=== PATIENT | male | born 1995 | race Caucasian/White ===

== ENCOUNTER 2019-10-29 10:42 | Outpatient (CLI) | payer OTHER, SELFPAY ==
--- NOTE | ~2019-10-29 | US_ITS ---
EXAMINATION: US thyroid DATE: 10/29/2019 11:20 INDICATION: Enlarged thyroid. TECHNIQUE: Multiple ultrasound images of the thyroid were obtained. COMPARISON: None. FINDINGS: The right thyroid lobe measures 4.8 x 1.7 x 2.0 cm. The left thyroid lobe measures 4.4 x 1.6 x 1.8 c m. In the left thyroid lobe, there is a 5 mm solid, hypoechoic, [id number] nodule with ill-defi bry margin without echogenic foci (TI-RADS TR4). IMPRESSION: 1. Small thyroid nodule, likely not clinically significant. No follow-up is needed. Reviewed, dictated and finalized at location A. IMPRESSION: 1. Small thyroid nodule, likely not clinically significant. No follow-up is nee ded.
== END 2019-10-29 10:43 | disposition home or self-care (01) ==
PROVIDERS: Visit Provider Internal Medicine
DX: E04.1 Nontoxic single thyroid nodule (principal)
CPT/HCPCS: 76536

== ENCOUNTER 2020-03-19 09:58 | Outpatient (NON) | payer OTHER, SELFPAY ==
[2020-03-19 21:15] LABS: SARS-CoV-2 RNA PCR Negative
== END 2020-03-19 09:59 ==
PROVIDERS: Visit Provider Student in an Organized Health Care Education/Training Program
DX: R06.02 Shortness of breath (principal); M79.10 Myalgia, unspecified site; R53.83 Other fatigue; Z20.828 Contact with and (suspected) exposure to other viral communicable diseases
CPT/HCPCS: 87635; C9803; U0003

== ENCOUNTER 2020-10-30 20:17 | Emergency (ER) | payer OTHER, SELFPAY ==
[2020-10-30 20:33] VITALS: BP 123/82; PULSE 77; RESP 16; TEMP 36.4; O2SAT 98
--- NOTE | 2020-10-30 21:11 | ED.GENADULT ---
HPI - General Adult General Chief complaint: Unspecified Stated complaint: poss exposure to rabies from bats Time Seen by Provider: 10/30/20 21:01 History of Present Illness HPI narrative: Patient is a 25-year-old male who presents to the ER for evaluation of possible rabies exposure. Patient reports he went on to his back deck and there were 2 bats laying on the ground. He picked each went up by a wing and then placed him on his windowsill before then taking a plastic bag 1 hand and pushing the animals into a separate plastic bag. Does not believe he was bit. No scratches to his fingers. No other concerns. Related Data Home Medications Medication Instructions Recorded Confirmed cariprazine 1.5 mg capsule 1.5 mg PO DAILY 07/22/20 trazodone 50 mg tablet 50 mg PO QHS PRN 07/22/20 Allergies Allergy/AdvReac Type Severity Reaction Status Date / Time No Known Allergies Allergy Mild Verified 10/30/20 20:18 Review of Systems Constitutional: Constitutional: Denies chills and Denies fever(s) Integumentary/Breasts: Skin/Breast: Denies change in pigmentation, Denies lesions and Denies wounds PMFSH Past Medical History Medical History (Updated 10/30/20 @ 21:15 by He Fields MD) Allergies Anxiety Asthma Counseling on health promotion and disease prevention Former smoker GERD (gastroesophageal reflux disease) History of frequent headaches History of IBS Inflammatory arthritis SOB (shortness of breath) Family History Family History Mother Patient's mother is in good health Rheumatoid arthritis Lupus Father Patient's father is in good health Sibling Patient's brother is in good health Grandparent Cancer Heart disease Social History Social History Smoking status: Never smoker Alcohol intake: never Substance use: never Substance use type: does not use Exam Narrative: Exam Narrative: GENERAL: Well-appearing, well-nourished, and in no acute distress. HEAD: Normocephalic, atraumatic. CHEST: Clear to auscultation. No respiratory distress. HEART: Regular rate and rhythm. Normal peripheral pulses. EXTREMITIES: Normal range of motion. No edema. SKIN: Warm, dry, no rash. PSYCH: Normal mood and affect. Course Course Emergency Course: Sounds like patient had a nonexposure. We will not vaccinated against rabies. Discharge. Vital Signs Vital signs: Vital Signs Temperature 97.5 F L 10/30/20 20:33 Pulse Rate 77 10/30/20 20:33 Respiratory Rate 16 10/30/20 20:33 Blood Pressure 123/82 10/30/20 20:33 Pulse Oximetry 98 10/30/20 20:33 Temperature 97.5 F L 10/30/20 20:33 Pulse Rate 77 10/30/20 20:33 Respiratory Rate 16 10/30/20 20:33 Blood Pressure 123/82 10/30/20 20:33 Pulse Oximetry 98 10/30/20 20:33 Medical Decision Making Vital Signs Vital Signs: Vital Signs Temperature 97.5 F L 10/30/20 20:33 Pulse Rate 77 10/30/20 20:33 Respiratory Rate 16 10/30/20 20:33 Blood Pressure 123/82 10/30/20 20:33 Pulse Oximetry 98 10/30/20 20:33 Temperature 97.5 F L 10/30/20 20:33 Pulse Rate 77 10/30/20 20:33 Respiratory Rate 16 10/30/20 20:33 Blood Pressure 123/82 10/30/20 20:33 Pulse Oximetry 98 10/30/20 20:33 Discharge Plan Discharge Clinical Impression: Encounter for well adult exam without abnormal findings Patient Disposition: Home, Self-Care Condition: Stable Additional Instructions: Per your history there is no evidence for rabies exposure. Since you have the bats with you it would be recommended that you give them to animal control for further evaluation. Return the ER if you are having muscle cramps in your hand, you have new skin laceration not originally identified, or you have additional concerns. Prescriptions: No Action Vraylar 1.5 mg capsule 1.5 mg PO DAILY RF: 0 hydrox
== END 2020-10-30 22:26 | disposition home or self-care (01) ==
PROVIDERS: Emergency Provider Emergency Medicine; PCP Student in an Organized Health Care Education/Training Program
DX: Z03.89 Encounter for observation for other suspected diseases and conditions ruled out (principal); J45.909 Unspecified asthma, uncomplicated; K21.9 Gastro-esophageal reflux disease without esophagitis; K58.9 Irritable bowel syndrome, unspecified; M19.90 Unspecified osteoarthritis, unspecified site; F41.9 Anxiety disorder, unspecified; Z87.891 Personal history of nicotine dependence
CPT/HCPCS: 99281

== ENCOUNTER 2022-03-26 15:21 | Emergency (ER) | payer BC, SELFPAY ==
--- NOTE | ~2022-03-26 | XR_ITS ---
XR ankle RT min 3V DATE: 03/26/2022 15:46 INDICATION: Twisted ankle. Lateral ankle pain. TECHNIQUE: 4 views COMPARISON: None FINDINGS: There is mild lateral ankle soft tissue swelling. Small chronic bony ossicles near the inferior aspect of the lateral malleolus. No recent fracture or dislocation of the ankle or disruption of the ankle mortise is detected. IMPRESSION: Mild lateral soft tissue swelling; no recent fracture or dislocation Reviewed, dictated and finalized at location A. 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
[2022-03-26 15:40] VITALS: BP 134/82; PULSE 60; RESP 18; TEMP 36.3; O2SAT 100
--- NOTE | 2022-03-26 15:48 | ED.LOWEXIN ---
HPI - Extremity Injury (Lower) General Chief Complaint: Extremity Injury, Lower Stated Complaint: Right Ankle Pain Time Seen by Provider: 03/26/22 15:48 Source: patient Mode of arrival: ambulatory Limitations: no limitations History of Present Illness HPI Narrative: 27-year-old male presents with complaint pain to right ankle. Reports that he fell today and right ankle twisted underneath him. Injury happened 2-3 hours prior to arrival. Ambulatory with steady gait. Patient requesting x-ray, wants make sure he does not fracture. 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 Range of motion decreased due to pain, distal neurovascularly intact. All systems reviewed and negative except as noted above. Related Data Home Medications Medication Instructions Recorded Confirmed No Home Medications 03/26/22 03/26/22 Allergies Allergy/AdvReac Type Severity Reaction Status Date / Time No Known Allergies Allergy Mild Verified 03/26/22 15:38 Review of Systems Review of Systems: CONSTITUTIONAL: Denies fever, chills, or sweats. EYES: Denies visual changes, redness, or discharge. ENT: denies rhinorrhea, congestion, sore throat, or otalgia. CARDIOVASCULAR: Denies chest pain, palpitations, or edema. RESPIRATORY: Denies cough or dyspnea. GASTROINTESTINAL: Denies abdominal pain, nausea, vomiting, or diarrhea. GENITOURINARY: Denies dysuria or hematuria. SKIN: Denies rash or itching. MUSCULOSKELETAL: Denies back pain. Reports right ankle pain. NEUROLOGIC: Denies headache, numbness, or weakness. PSYCHIATRIC: Denies anxiety or depression. All other systems reviewed are negative, except as documented in HPI. [facility] Past Medical History Medical History (Updated 03/26/22 @ 16:20 by Leigh Mccoy NP) Allergies Anxiety Asthma Counseling on health promotion and disease prevention Former smoker GERD (gastroesophageal reflux disease) History of frequent headaches History of IBS Inflammatory arthritis SOB (shortness of breath) Family History Family History Mother Patient's mother is in good health Rheumatoid arthritis Lupus Father Patient's father is in good health Sibling Patient's brother is in good health Grandparent Cancer Heart disease Social History Social History Smoking status: Never smoker Alcohol intake: never Substance use: never Substance use type: does not use Comments At time of signature, agree with nursing past medical, surgical, social and family history. There is no relevant family history pertinent to the presenting complaint. Exam Narrative: GENERAL: This is a well-nourished, well-developed patient, in no apparent distress. HEAD: normocephalic, atraumatic. EYES: PERRL. Sclera clear/white. Vision is grossly intact. EARS: External ears normal NOSE: External nose normal NECK: Neck supple, non-tender without lymphadenopathy, masses or thyromegaly. CARDIOVASCULAR: Regular rate and rhythm without murmurs, gallops, or rubs. RESPIRATORY: Clear to auscultation. Breath sounds equal bilaterally. No wheezes, rales, or rhonchi. SKIN: warm, Dry, intact with no suspicious lesions or rash, good texture and turgor. NEURO: awake, alert, and oriented to person, place and time. There were no obvious focal neurologic abnormalities. EXTREMITIES: Mild swelling to the lateral aspect right ankle, tenderness to right CFL. No instability. Range of motion decreased due to pain. Distal pulses 2+ Course Course Level of Care: Express Care Visit Vital Signs Vital signs: Vital Signs Temperature 36.3 C L 03/26/22 15:40 Pulse Rate 60 03/26/22 15:40 Respiratory Rate 18 03/26/22 15:40 Blood Pressure 134/82 03/26/22 15:40 Pulse Oximetry 100 03/26/22 15:40 Oxygen Delivery Room Air 03/26/22 15:40 Temperature 36.3 C L 03/26/22 15:40 Pulse Ra
== END 2022-03-26 16:28 | disposition home or self-care (01) ==
PROVIDERS: Emergency Provider Nurse Practitioner Family; PCP Nurse Practitioner Adult Health
DX: S93.401A Sprain of unspecified ligament of right ankle, initial encounter (principal); W19.XXXA Unspecified fall, initial encounter; K21.9 Gastro-esophageal reflux disease without esophagitis; J45.909 Unspecified asthma, uncomplicated; M13.80 Other specified arthritis, unspecified site
CPT/HCPCS: 73610; 99213; G0463

== ENCOUNTER 2022-05-02 18:21 | Emergency (ER) | payer BC, SELFPAY ==
[2022-05-02 18:36] VITALS: BP 129/78; PULSE 65; RESP 16; TEMP 36.4; O2SAT 97
--- NOTE | 2022-05-02 19:18 | ED.SKABFB ---
HPI - Skin/Abscess/Foreign Bdy General Chief complaint: Skin/Abscess/Foreign Body Stated complaint: Swollen Armpits Source: patient Mode of arrival: ambulatory Limitations: no limitations History of Present Illness HPI narrative: 27-year-old male presents to Express Care complains of swelling to lymph nodes to his bilateral axilla regions since last night. Patient denies unexplained weight loss, night sweats, fever, body aches, chills, nausea, vomiting or diarrhea. Onset (ago): day(s) (1) Relieving factors: none Exacerbating factors: none Associated symptoms: denies other symptoms Treatments prior to arrival: none Related Data Allergies Allergy/AdvReac Type Severity Reaction Status Date / Time No Known Allergies Allergy Mild Verified 03/26/22 15:38 Review of Systems Constitutional: Constitutional: Denies chills, Denies fatigue, Denies fever(s) and Denies weakness ENT: Denies vertigo, Denies dizziness and Denies epistaxis Comments: Enlarged lymph nodes to bilateral axilla regions Gastrointestinal: Gastrointestinal: Denies diarrhea, Denies nausea and Denies vomiting Musculoskeletal: Musculoskeletal: Denies arthralgias and Denies joint swelling Integumentary/Breasts: Comments: lymphadenopathy PMFSH Past Medical History Medical History Allergies Anxiety Asthma Counseling on health promotion and disease prevention Former smoker GERD (gastroesophageal reflux disease) History of frequent headaches History of IBS Inflammatory arthritis SOB (shortness of breath) Family History Family History Mother Patient's mother is in good health Rheumatoid arthritis Lupus Father Patient's father is in good health Sibling Patient's brother is in good health Grandparent Cancer Heart disease Social History Social History Smoking status: Never smoker Alcohol intake: never Substance use: never Substance use type: does not use Comments At time of signature, I agree with nursing past medical, surgical, social and family history. There is no relevant family history pertinent to the presenting complaint. Exam Const: General: healthy appearing Nutritional Appearance: well nourished Orientation/consciousness: patient oriented x3 Limitations: no limitations HENMT: Head: normal to inspection Ears: external ears normal and TM's normal bilaterally Face/Nose/Sinus: Normal external nose present Face and sinus: normal facial exam Throat: posterior oropharynx normal and uvula midline Neck: Neck: normal visual inspection Resp: Effort & Inspection: normal respiratory effort and not labored Auscultation: clear to auscultation bilaterally, no crackles, no rales, no rhonchi and no wheezes Cardio: Rate: regular rate Rhythm: regular rhythm Heart sounds: no murmurs Skin: Other: Mild lymphadenopathy noted to bilateral axillary region with scant amount of surrounding erythema noted. Areas are slightly painful upon palpation. There is no streaking erythema, open wounds, purulent drainage, bruising or bleeding noted. Neuro: General: patient oriented x3 Psych: Affect: normal affect Attitude: cooperative Course Course Level of Care: Express Care Visit Vital Signs Vital signs: Vital Signs Temperature 36.4 C 05/02/22 18:36 Pulse Rate 65 05/02/22 18:36 Respiratory Rate 16 05/02/22 18:36 Blood Pressure 129/78 05/02/22 18:36 Pulse Oximetry 97 05/02/22 18:36 Oxygen Delivery Room Air 05/02/22 18:36 Temperature 36.4 C 05/02/22 18:36 Pulse Rate 65 05/02/22 18:36 Respiratory Rate 16 05/02/22 18:36 Blood Pressure 129/78 05/02/22 18:36 Pulse Oximetry 97 05/02/22 18:36 Oxygen Delivery Room Air 05/02/22 18:36 MDM - Skin/Abscess/Foreign Bdy MDM Narrative Medical decision making narrative: Patient rep
== END 2022-05-02 19:30 | disposition home or self-care (01) ==
PROVIDERS: Emergency Provider Nurse Practitioner Family; PCP Nurse Practitioner Adult Health
DX: R59.0 Localized enlarged lymph nodes (principal); J45.909 Unspecified asthma, uncomplicated; K21.9 Gastro-esophageal reflux disease without esophagitis; M13.80 Other specified arthritis, unspecified site; Z87.891 Personal history of nicotine dependence
CPT/HCPCS: 99213; G0463

== ENCOUNTER 2023-01-14 11:04 | Emergency (ER) | payer BC, SELFPAY ==
[2023-01-14 11:26] VITALS: BP 137/86; PULSE 63; RESP 16; TEMP 36.4; O2SAT 100
--- NOTE | 2023-01-14 11:50 | ED.URI ---
HPI - URI/Sore Throat General Chief Complaint: Upper Respiratory Infection Stated Complaint: Bodyaches Time Seen by Provider: 01/14/23 11:50 Source: patient, RN notes reviewed and old records reviewed Mode of arrival: ambulatory Limitations: no limitations History of Present Illness HPI Narrative: 28 year old male who presents to [facility] care with complaints of having body aches, stuffy nose, arms feel weak and it hurts in his chest when he breath for the past 4 days. Patient reports no one else around him is ill. Patient reports that he has dull ache in his chest with his breathing reports that he quit vaping 3 days ago. Patient denies any nausea or any episodes of diaphoresis denies any fevers, states history of asthma.Patient is able to speak in full sentences, no tachypnea noted or any retractions SAO2 100% on room air. Patient has not taken any OTC medications for his symptoms. MD elicited complaint: nasal congestion and other (body aches,hurts in chest when he breaths, arms feel weak no fever) Pertinent past history: asthma Onset (ago): day(s) (4) Severity: mild Treatments prior to arrival: none Related Data Allergies Allergy/AdvReac Type Severity Reaction Status Date / Time No Known Allergies Allergy Mild Verified 01/14/23 11:06 Review of Systems Review of Systems: CONSTITUTIONAL: Denies fever, chills, or sweats. EYES: Denies visual changes, redness, or discharge. ENT: Denies rhinorrhea,states nasal congestion,no sore throat, or otalgia. CARDIOVASCULAR: Denies chest pain, palpitations, or edema.reports that chest aches with his breathing RESPIRATORY: Denies cough or dyspnea. GASTROINTESTINAL: Denies abdominal pain, nausea, vomiting, or diarrhea. GENITOURINARY: Denies dysuria or hematuria. SKIN: Denies rash or itching. MUSCULOSKELETAL: Denies back pain, joint pain, reports body aches NEUROLOGIC: Denies headache, numbness, or weakness PSYCHIATRIC: Denies anxiety or depression. All systems reviewed & are unremarkable except as noted in HPI and below PMFSH Past Medical History Medical History Allergies Anxiety Asthma Counseling on health promotion and disease prevention Former smoker GERD (gastroesophageal reflux disease) History of frequent headaches History of IBS Inflammatory arthritis SOB (shortness of breath) Family History Family History Mother Patient's mother is in good health Rheumatoid arthritis Lupus Father Patient's father is in good health Sibling Patient's brother is in good health Grandparent Cancer Heart disease Social History Social History (Updated 01/16/23 @ 09:07 by Leeann Cisneros NP) Smoking status: Former smoker Tobacco type: cigarettes and e-cigarettes/vaping Alcohol intake: former Substance use: never Substance use type: does not use 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 There is no relevant family history pertinent to the presenting complaint Exam Narrative: GENERAL: Well-appearing, well-nourished, and in no acute distress. HEAD: Normocephalic, atraumatic. EYES: PERRLA and EOMI. ENT: Nares clear, clear rhinorrhea no epistaxis. Mucous membranes moist.TM's normal with good light reflex, throat pink with no swelling NECK: Supple. no lymphadenopathy CHEST: Clear to auscultation. No respiratory distress.speaks in full sentences, no tachypnea SAO2 100% on room air HEART: Regular rate and rhythm. No murmur heard. Normal peripheral pulses. ABDOMEN: Soft, nontender, nondistended, normal active bowel sounds. EXTREMITIES: Normal range of motion. No edema. SKIN: Warm, dry, no rash. NEURO: No focal deficits. Alert and oriented x3. Course Course Emergency Course: Patient is aware of d
== END 2023-01-14 12:39 | disposition home or self-care (01) ==
PROVIDERS: Emergency Provider Registered Nurse
DX: M94.0 Chondrocostal junction syndrome [Tietze] (principal); Z20.822 Contact with and (suspected) exposure to COVID-19; Z87.891 Personal history of nicotine dependence; J45.909 Unspecified asthma, uncomplicated; K21.9 Gastro-esophageal reflux disease without esophagitis; M13.80 Other specified arthritis, unspecified site
CPT/HCPCS: 87426; 87804; 99213; C9803; G0463

== ENCOUNTER 2023-05-11 12:49 | Emergency (ER) | payer BC, SELFPAY ==
[2023-05-11 13:04] VITALS: BP 124/82; PULSE 74; RESP 17; TEMP 36.6; O2SAT 100
--- NOTE | 2023-05-11 13:33 | ED.SKABFB ---
HPI - Skin/Abscess/Foreign Bdy General Chief complaint: Skin/Abscess/Foreign Body Stated complaint: Rash Time Seen by Provider: 05/11/23 13:20 Source: patient Mode of arrival: ambulatory Limitations: no limitations History of Present Illness HPI narrative: Estevan is a 28-year-old male patient presenting to the clinic today with complaints of a rash on his feet and hands that just developed this morning. Reports that the rash is very itchy. He has applied some Benadryl cream without relief. Reports no sore throat but has been passing strep back in forth with his son home. Just finished up antibiotics recently for strep. Denies any new changes in soaps, shampoos, detergents, lotions, foods, or medications. No history of psoriasis. Related Data Allergies Allergy/AdvReac Type Severity Reaction Status Date / Time No Known Allergies Allergy Mild Verified 01/14/23 11:06 Review of Systems Review of Systems: Pertinent positives per HPI. Patient denies any fever, chills,headache, visual changes, dizziness, cough, runny nose, sore throat, shortness of breath, chest pain, palpitations, nausea, vomiting, diarrhea, constipation, abdominal pain, or any urinary issues. [facility] Past Medical History Medical History Allergies Anxiety Asthma Counseling on health promotion and disease prevention Former smoker GERD (gastroesophageal reflux disease) History of frequent headaches History of IBS Inflammatory arthritis SOB (shortness of breath) Family History Family History Mother Patient's mother is in good health Rheumatoid arthritis Lupus Father Patient's father is in good health Sibling Patient's brother is in good health Grandparent Cancer Heart disease Social History Social History Smoking status: Former smoker Tobacco type: cigarettes and e-cigarettes/vaping Alcohol intake: former Substance use: never Substance use type: does not use 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 There is no relevant family history pertinent to the patient complaint. Exam Narrative: General: Well-developed, well nourished, in no apparent distress Head: Normocephalic, atraumatic Eyes: Pupils equally round and reactive to light bilaterally, EOM intact, sclera and conjunctive clear, no discharge, lids normal Ears: TMs intact and clear, ear canals clear, no drainage, grossly hearing normal. Nose: Nares patent, no discharge, no inflammation, no sinus tenderness. Mouth: Oropharynx mildly red without lesions or masses, good dentition, MMM. Neck: Supple, trachea midline, no enlargement of anterior or posterior cervical nodes, no thyroid masses or goiter palpable. Cardio: Regular rate and rhythm, s1 and s2 normal, no murmur appreciated. Resp: Clear to auscultation bilaterally anteriorly and posteriorly, no rhonchi, rales, wheezing or rubs Integumentary: [place], warm, and dry, intact without lesion, red raised scaly rash to bilateral palms and to the dorsal aspect of bilateral feet Course Course Emergency Course: Portions of this record may have been created with voice recognition software. Level of Care: Express Care Visit Vital Signs Vital signs: Vital Signs Temperature 36.6 C 05/11/23 13:04 Pulse Rate 74 05/11/23 13:04 Respiratory Rate 17 05/11/23 13:04 Blood Pressure 124/82 05/11/23 13:04 Pulse Oximetry 100 05/11/23 13:04 Oxygen Delivery Room Air 05/11/23 13:04 Temperature 36.6 C 05/11/23 13:04 Pulse Rate 74 05/11/23 13:04 Respiratory Rate 17 05/11/23 13:04 Blood Pressure 124/82 05/11/23 13:04 Pulse Oximetry 10
== END 2023-05-11 13:41 | disposition home or self-care (01) ==
PROVIDERS: Emergency Provider Nurse Practitioner Family
DX: L30.9 Dermatitis, unspecified (principal); Z87.891 Personal history of nicotine dependence
CPT/HCPCS: 87081; 87880; 99213; G0463

== ENCOUNTER 2023-10-31 08:22 | Emergency (ER) | payer BC, SELFPAY ==
--- NOTE | ~2023-10-31 | XR_ITS ---
EXAMINATION: XR chest 2V DATE: 10/31/2023 09:10 INDICATION: Chest pain. Shortness of breath. TECHNIQUE: Frontal and lateral views of the chest were obtained. COMPARISON: Chest 2 views 10/08/2013 FINDINGS: There is no pneumonia, pleural effusion, or pneumothorax. The heart size is normal. IMPRESSION: 1. No acute cardiopulmonary disease. Reviewed, dictated and finalized at location E.
--- NOTE | 2023-10-31 08:25 | ECG_ITS ---
Test Date: 2023-10-31 08:28:37 Measurements Intervals [place] Rate: 50 P: 16 NM: 169 QRS: 0 QRSD: 101 T: 15 QT: 397 QTc: 365 Interpretive Statements SINUS BRADYCARDIA No previous ECG available for comparison Electronically Signed On 10-31-2023 12:11:03 CDT by Bushra Hobbs M.D.
[2023-10-31 08:27] VITALS: BP 137/82; PULSE 53; RESP 22; TEMP 36.4; O2SAT 100
[2023-10-31 08:49] LABS: Hematocrit 48.4 % (42.0-52.0); Mean Corpuscular HGB Conc 35.1 g/dl (32-36); Mean Corpuscular Hemoglobin 29.3 pg (26-34); Mean Corpuscular Volume 83.4 fl (80-100); Mean Platelet Volume 10.1 fl (7.4-10.4); Platelet Count Result 238 k/mm3 (150-375); Red Cell Distribution Width 12.6 % (11.5-14.5); White Blood Count 6.1 K/mm3 (4.5-10.0)
[2023-10-31 09:01] LABS: Alanine Aminotransferase 41 U/L (6-50); Albumin Level 4.8 g/dL (3.5-5.1); Alkaline Phosphatase 47 U/L (38-126); Anion Gap 9 mmol/L (4-12); Aspartate Amino Transferase 25 U/L (17-59); Bilirubin,Total 1.3 mg/dL (0.2-1.3); Blood Urea Nitrogen 15 mg/dL (9-20); Calcium 9.1 mg/dL (8.4-10.2); Carbon Dioxide 26 mmol/L (22-30); Chloride 106 mmol/L (98-107); Estimated CRCL calculation 102 ml/min; Estimated Glomerular Filt Rate > 60; Glucose 87 mg/dL (65-110); Lipase 72 U/L (23-300); Sodium 141 mmol/L (137-145)
[2023-10-31 09:03] LABS: INR 0.9; Prothrombin Time 12.9 Seconds (11.1-14.7)
[2023-10-31 09:04] LABS: Partial Thromboplastin Time 27.1 Seconds (22.3-36.8)
[2023-10-31 09:12] LABS: Troponin I < 0.012 ng/mL (0.000-0.034)
[2023-10-31 09:14] LABS: Band Neutrophils Percent 2 % (0-6); Monocytes Percent Manual 5 % (3-9); Neutrophils Percent Manual 61 % (46-73); Platelet Estimate Adequate (Adequate); Schistocytes None Seen; Total Cells Counted 100
[2023-10-31 09:15] LABS: Platelet Estimate Adequate (Adequate); Schistocytes None Seen
[2023-10-31 09:16] VITALS: BP 137/72; PULSE 66; RESP 16; O2SAT 100
--- NOTE | 2023-10-31 09:46 | ED.CHESTPAIN ---
HPI - Chest Pain General Chief Complaint: Chest Pain Stated Complaint: sob, cp Time Seen by Provider: 10/31/23 08:28 History of Present Illness HPI narrative: 28-year-old male presents to the emergency department for evaluation for intermittent right-sided chest pain. Patient states over last 2 days he has had intermittent right-sided chest pain. Patient states the chest pain does not radiate to his neck back or arms. Patient states the chest pain does not occur specifically with exertion. Patient denies any prior history DVT but does have a history of superficial venous thrombosis on his right leg approximately year ago. Patient denies any cardiac history. At time of evaluation patient denies any current chest pain. Related Data Allergies Allergy/AdvReac Type Severity Reaction Status Date / Time amoxicillin Allergy Intermediate Rash Uncoded 08/08/23 15:51 Review of Systems Review of Systems: All systems reviewed & are unremarkable except as noted in HPI and below PMFSH Past Medical History Medical History (Updated 10/31/23 @ 11:52 by Luis Walker MD) Allergies Anxiety Asthma Counseling on health promotion and disease prevention Former smoker GERD (gastroesophageal reflux disease) History of frequent headaches History of IBS Inflammatory arthritis SOB (shortness of breath) Family History Family History Mother Patient's mother is in good health Rheumatoid arthritis Lupus Father Patient's father is in good health Sibling Patient's brother is in good health Grandparent Cancer Heart disease Social History Social History (Updated 08/08/23 @ 15:17 by Veronica Reyes MA) Smoking status: Former smoker Tobacco type: cigarettes and e-cigarettes/vaping Alcohol intake: current Alcohol use details: Time to Time (Tequila) Substance use: never Substance use type: does not use Lack of Transportation: No Lack of Food: Never True Current Housing: I Have Housing Concerned About Future Housing: No Difficulty Paying Gas/Electric Bills: No Difficulty Paying for Meds: No Currently Unemployed: No Education: High School Diploma/GED Difficulty w/ Childcare or Family Care: No Occupation/Education: occupation Additional occupation/education comments: @ [employer] Gender identity (if verbalized by the patient): Male Agree to blood products: Yes Exam Narrative: APPEARANCE: Well appearing, no pain, no distress, well-nourished. HEAD: normocephalic, atraumatic. EYES: PERRLA/EOMI, conjunctivae clear. NOSE: Normal no drainage EARS:TMS clear with good light reflex. THROAT: Pharynx clear, no exudate. NECK: Supple. No adenopathy, no masses. RESPIRATORY: Airway patent, respirations nonlabored. Clear to auscultation bilaterally, no rales, rhonchi, wheezing. CARDIOVASCULAR: Regular rate and rhythm without murmurs rubs or gallops. ABDOMINAL: Soft, nontender, nondistended, normal bowel sounds MUSCULOSKELETAL: Moves all extremities. Strength/ROM intact, No edema, No calf tenderness. NEURO: Alert. Cranial nerves II through XII intact. Grossly intact SKIN: Warm, dry. Normal Color Course Vital Signs Vital signs: Vital Signs Temperature 97.6 F 10/31/23 08:27 Pulse Rate 53 L 10/31/23 08:27 Respiratory Rate 22 H 10/31/23 08:27 Blood Pressure 137/82 10/31/23 08:27 Pulse Oximetry 100 10/31/23 08:27 Oxygen Delivery Room Air 10/31/23 08:27 Temperature 98.2 F 10/31/23 11:58 Pulse Rate 72 10/31/23 11:58 Respiratory Rate 16 10/31/23 11:58 Blood Pressure 122/76 10/31/23 11:58 Pulse Oximetry 100 10/31/23 11:58 Oxygen Delivery Room Air 10/31/23 08:35 MDM - Chest Pain MDM Narrative Medical decision making narrative: 28-year-old male presents emergency department for evaluation for right-sided chest pain. Patient has been chest pain-free in the emergency department. Pat
[2023-10-31 09:52] LABS: D Dimer 0.37 ug/mL (<0.48)
[2023-10-31 10:32] LABS: Influenza A QL RT-PCR Negative (Negative); Influenza B QL RT-PCR Negative (Negative); RSV RNA, RT-PCR Negative (Negative); SARS-CoV-2 RNA PCR Negative (Negative)
[2023-10-31 11:08] VITALS: BP 143/73; PULSE 76; RESP 16; O2SAT 100
--- NOTE | 2023-10-31 11:15 | ECG_ITS ---
Test Date: 2023-10-31 11:24:44 Measurements Intervals Boutte Rate: 52 P: 4 ID: [id number] QRS: 12 QRSD: 103 T: 20 QT: 392 QTc: 366 Interpretive Statements SINUS BRADYCARDIA WITH SINUS ARRHYTHMIA Compared to ECG 10/31/2023 08:28:37 No significant changes Electronically Signed On 11-01-2023 14:23:03 CDT by Bushra Hobbs M.D.
[2023-10-31 11:45] LABS: Troponin I < 0.012 ng/mL (0.000-0.034)
[2023-10-31 11:58] VITALS: BP 122/76; PULSE 72; RESP 16; TEMP 36.8; O2SAT 100
== END 2023-10-31 12:00 | disposition home or self-care (01) ==
PROVIDERS: Emergency Provider Emergency Medicine; PCP Nurse Practitioner Adult Health
DX: R07.89 Other chest pain (principal); Z20.822 Contact with and (suspected) exposure to COVID-19; K21.9 Gastro-esophageal reflux disease without esophagitis; K58.9 Irritable bowel syndrome, unspecified; Z87.891 Personal history of nicotine dependence; R00.1 Bradycardia, unspecified
CPT/HCPCS: 36415; 71046; 80053; 83690; 84484; 85025; 85380; 85610; 85730; 87637; 93005; 99284

== ENCOUNTER 2023-11-28 15:04 | Outpatient (CLI) | payer BC, SELFPAY ==
--- NOTE | ~2023-11-28 | US_ITS ---
EXAMINATION: US thyroid DATE: 11/28/2023 15:25 INDICATION: Nontoxic single thyroid nodule TECHNIQUE: Multiple ultrasound images of the thyroid were obtained. COMPARISON: None. FINDINGS: The right thyroid lobe measures 4.2 x 1.5 x 1.7 cm. The left thyroid lobe measures 2.9 x 1.2 x 2.0 c m. The thyroid isthmus measures 3 mm thickness. No interval change in a 4 mm solid wider than tall hy poechoic nodule with ill-defined margins and without echogenic foci (TI-RADS 4, moderately suspicious , FNA if >=1.5 cm, annual followup is >=1 cm) in the left thyroid lobe. There is normal echotexture, echogenicity and vascular flow throughout the thyroid gland. IMPRESSION: 1. No interval change in a 4 mm left thyroid nodule which remains below size criteria for either biop sy or follow-up. Recommend clinical followup with repeat imaging if there are changes on physical exa m. Reviewed, dictated and finalized at location A. IMPRESSION: 1. No interval change in a 4 mm left thyroid nodule which remains below size cr iteria for either biopsy or follow-up. Recommend clinical followup with repeat imaging if there are changes on physical exam.
== END 2023-11-28 15:05 | disposition home or self-care (01) ==
LOC: ANHIMG 15:06
PROVIDERS: PCP Nurse Practitioner Adult Health; Visit Provider Nurse Practitioner Adult Health
DX: E04.1 Nontoxic single thyroid nodule (principal)
CPT/HCPCS: 36415; 76536; 84439; 84443

== ENCOUNTER 2024-08-21 08:59 | Outpatient (CLI) | payer BC, SELFPAY ==
--- OUTSIDE RECORDS SUMMARY | 2024-08-21 09:45 | XMS_ITS | Encounter Summary ---
Author Organization [facility] Address [facility] [place] [address] Care Team Providers Care Nonprofit Fundraiser Name Role Phone Aguilar Harshad Vail DO Primary Care Provider + Mare Johnson [facility] Primary Care Provider Unav ailable David Weir MD Primary Care Provider Un available None, Provider Primary Care Provider Unavaila ble Encounter Details Date Type Department Care Team (Late st Contact Info) Description 07/31/2019 Scannx Message Enc [facility] Medical Group Family Medicine - [address] [address] Mau Mares DO [address] [phone] RE: Question Social History Tobacco Use Types Packs/Day Years Used Date Smoking Tobacco: Some Days Smokeless Tobacco: Never Alcohol Use Standard Drinks/Week Comments Never 0 (1 standard drink = 0.6 oz pur e alcohol) AUDIT-C Answer Date Recorded Frequency of Alcohol Consumption Never 07/07/2019 Average Number of Drinks Not on file 020 Frequency of Binge Drinking Not on file 06/16 Sex and Gender Information Value Date Recorded Sex Assigned at Not on file 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 Sex 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 Gender Identity Not on file Sexual Orientation Not on file documented as of this encounter Plan of Treatment Not on file documented as of this encounter Visit Diagnoses Not on filedocumented in this encounter Additional Health Concerns Infection Onset Date Last Indicated Resolved Time COVID-19 Rule Out 12/10/2019 12/10/2019 02/08/2020 12:32 AM CDT COVID-19 Rule Out 03/18/2020 03/19/2020 03/30/2020 11:54 AM PRECIPITATOR OPERATOR documented as of this encounter Care Teams Nonprofit Fundraiser Relationship Specialty Start Date End Date Harshad Sheikh DO [address] [place] [id number] PCP - General FAMILY PRACTICE 11/27/19 05/01/22 [facility] [address] [place] [id number] PCP - General NURSE PRACTITIONER 05/02/22 05/13/22 David Weir MD [address] [place] [id number] PCP - General FAMILY PRACTICE 05/14/22 12/05/22 None, Provider, PCP - General UNKNOWN PHYSICIAN SPECIALTY 12/06/22 documented as of this encounter
--- OUTSIDE RECORDS SUMMARY | 2024-08-21 09:45 | XMS_ITS | Encounter Summary ---
Author Organization [facility] Address [facility] [place] [address] Care Team Providers Care Outpatient Admitting Clerk Name Role Phone Mau Mares DO Primary Care Provider [phone] Harshad Sheikh DO Primary Care Provider + Mare Johnson [facility] Primary Care Provider Unav ailable David Weir MD Primary Care Provider Un available None, Provider Primary Care Provider Unavaila ble Encounter Details Date Type Department Care Team (Late st Contact Info) Description 09/13/2018 [place] Mediat Message Enc [facility] Medical Group Family Medicine - [place] [address] [place] [address] Mau Mares DO [address] [place] [phone] RE: Question Social History Tobacco Use Types Packs/Day Years Used Date Smoking Tobacco: Some Days Smokeless Tobacco: Never Sex and Gender Information Value Date Recorded Sex Assigned at Not on file 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 Gender Identity Not on file Sexual Orientation Not on file documented as of this encounter Plan of Treatment Not on file documented as of this encounter Visit Diagnoses Not on filedocumented in this encounter Additional Health Concerns Infection Onset Date Last Indicated Resolved Time COVID-19 Rule Out 12/10/2019 12/10/2019 02/08/2020 12:32 AM CDT COVID-19 Rule Out 03/18/2020 03/19/2020 03/30/2020 11:54 AM FIRE AND SAFETY HELPER documented as of this encounter Care Teams Outpatient Admitting Clerk Relationship Specialty Start Date End Date Mau Mares DO PCP - General FAMILY PRACTICE 07/19/18 07/06/19 Harshad Sheikh DO [address] [place] [id number] PCP - General FAMILY PRACTICE 11/27/19 05/01/22 [facility] [address] [place] [phone] PCP - General NURSE PRACTITIONER 05/02/22 05/13/22 David Weir MD [address] [place] [address] PCP - General FAMILY PRACTICE 05/14/22 12/05/22 None, Provider, PCP - General UNKNOWN PHYSICIAN SPECIALTY 12/06/22 documented as of this encounter
--- OUTSIDE RECORDS SUMMARY | 2024-08-21 09:45 | XMS_ITS | Clinical Summary ---
Author Organization [facility] Address [facility] [place] [address] Care Team Providers Care Machinist Automotive Name Role Phone None, Provider MD Primary Care Provider Unavaila ble Allergies No known active allergies Medications omeprazole 20 MG capsule Take 1 capsule by mouth daily. 0 Active PROAIR HFA 108 (90 Base) MCG/ACT inhalerIndicati ons:History of reactive airway disease Inhale 2 puffs into the lungs every 6 (six) hours as needed. 1 Inhaler 2 0 Active valACYclovir 500 MG tabletIndicatio ns:History of cold sores Take 1 tablet (500 mg total) by mouth daily. Appointment with new provider needed for future refills. Call [phone] to schedule. 90 tablet 1 Active clindamycin (CLEOCIN T) 1 % gel Apply topically 2 (two) times daily. As needed for red spots 60 g 2 Active LORazepam (ATIVAN) 0.5 MG tabletIndicatio ns:BPPV (benign paroxysmal positional vertigo) Take 2 tablets (1 mg total) by mouth every 6 (six) hours as needed (vertigo). 12 tablet 3 Active Active Problems Problem Noted Date Diagnosed Date Genital herpes simplex 05/11/2022 Anxiety state 05/11/2022 Mixed anxiety and depressive disorder 07/07/2021 Mild memory disturbance 07/07/2021 History of methamphetamine abuse 07/07/2021 Encounter for medication management 02/01/2021 Former smoker 02/01/2021 Inflammatory arthritis 02/01/2021 SOB (shortness of breath) 02/01/2021 Laryngopharyngeal reflux 11/27/2019 Polyarthralgia 11/27/2019 BMI 28.0-28.9,adult 11/27/2019 Left shoulder pain 10/21/2015 Shoulder injury 10/21/2015 Resolved Problems Problem Noted Date Diagnosed Date Resolved Date Counseling on health promoti on and disease prevention 02/01/2021 02/08/2021 Encounter for well adult horacio m without abnormal findings 02/01/2021 02/08/2021 Immunizations Name Administration Dates Next Due Hepatitis A (Generic) 08/28/2012 Tdap (Boostrix) 12/14/2016 Family History Medical History Relation Comments No Known Problems Brother No Known Problems Father Heart Attack Maternal Grandfather Stroke Maternal Grandfather Leukemia Maternal Grandmother Autoimmune Disease Mother Lupus Mother Rheumatoid Arthritis Mother No Known Problems Paternal Grandfather No Known Problems Paternal Grandmother No Known Problems Sister Breast Cancer Neg Hx Colon Cancer Neg Hx Prostate Cancer Neg Hx Relation Status Comments Brother Alive Father Alive Maternal Grandfather Alive Maternal Grandmother Alive Mother Alive Paternal Grandfather Alive Paternal Grandmother Alive Sister Alive Social History Tobacco Use Types Packs/Day Years Used Date Smoking Tobacco: Former Cigarettes Q uit: 10/28/2019 Electronic Cigarettes Smokeless Tobacco: Never Tobacco Cessation:Counseling Given: Not Answered Comments:6 mg nicotine Alcohol Use Standard Drinks/Week Comments Not Currently 0 (1 standard drink = 0.6 oz pur e alcohol) socially AUDIT-C Answer Date Recorded Frequency of Alcohol Consumption Never 07/07/2019 Average Number of Drinks Not on file 020 Frequency of Binge Drinking Not on file 06/16 PHQ-2 Answer Date Recorded PHQ-2 Score - If the patient scores above 3, please move on to questions 3-9 5 07/15/2020 Sex and Gender Information Value Date Recorded Sex Assigned at Not on file Legal Sex Male 3:11 PM YARD DRIVER Gender Identity Not on file Sexual Orientation Not on file Last Filed Vital Signs Vital Sign Reading Time Taken Comments Blood Pressure 128/82 07/19/2023 1:46 PM YARD DRIVER Pulse 70 07/19/2023 1:46 PM YARD DRIVER Temperature 36.8 C (98.3 F) 07/19/2023 10:39 AM YARD DRIVER Respiratory Rate 18 07/19/2023 1:46 PM YARD DRIVER Oxygen Saturation 96% 07/19/2023 1:46 PM YARD DRIVER Inhaled Oxygen Concentration - - Weight 93 kg (205 lb) 07/19/2023 10:39 AM YARD DRIVER Height 180.3 cm (5' 11 ) 07/19/2023 10:39 AM YARD DRIVER Body Mass Index 28.59 07/19/2023 10:39 AM YARD DRIVER Plan of Treatment Health Maintenance Due Date Last Done Comments Annual Physical 01/04/1996 Hepatitis C 2011 Hepatitis B Vaccines (1 of 3 - 19+ 3-dose series) 01/04/2012 COVID-19 Vaccine (2023-2 5 season) 2024 PHQ-2 (Physician Cofield) 05/15/2024 DTaP, Tdap and Td Vaccines ( 3 - Td or Tdap) 04/21/2031 04/21/2021, 12/14/2016, 12/14/2016 HPV Vaccines Aged Out No longer eligi ble based on patient's age to complete this topic Meningococcal B Vaccine Aged Out No l onger eligible based on patient's age to complete this topic Meningococcal Vaccine Aged Out No cheryl shahab eligible based on patient's age to complete this topic Pneumococcal Vaccine: Pediatrics (0 to 5 Years) and At-Risk Patients (6 to 64 Years) Aged Out No longer eligible b ased on patient's age to complete this topic RSV Immunizations Under 20 Months Aged Out No longer eligible b ased on patient's age to complete this [place] [id number] [facility] Care Teams Machinist Automotive Relationship Specialty Start Date End Date None, Provider, PCP - General UNKNOWN PHYSICIAN SPECIALTY 12/06/22
--- OUTSIDE RECORDS SUMMARY | 2024-08-21 09:45 | XMS_ITS | Continuity of Care Document ---
Author Organization [facility] Address [address] [place] [address] Phone Care Team Providers Care Linen Sorter Name Role Phone Nathan Pal MD Unavailable Unavailable Allergies, Adverse Reactions, Alerts Substance Reaction Status Criticality amoxicillin Hives / Skin Rash Active No Informa tion Medications Medication Instructions Dosage Effective Dates (start - stop) Status Comments omeprazole 40 mg capsule,delayed release take 1 capsule by oral route every day 40 MG - Active famotidine 40 mg tablet take 1 tablet by oral route every day at bedtime 40 MG - Active Procedures Procedure Date COLONOSCOPY AND BIOPSY TISSUE EXAM BY PATHOLOGIST BODY MASS INDEX DOCD SYST BP GE 130 - 139MM HG DIAST BP 80-89 MM HG OFFICE [id number] TISSUE EXAM BY PATHOLOGIST SPECIAL STAINS SPECIAL STAINS UPPER GI ENDOSCOPY BIOPSY DILATE ESOPHAGUS UNGUIDED Advance Directives Directive Yes / No Effective Date File Name No Information Encounters Encounter Description Practice Location Reason(s) For Visit Diagnoses Date Provider Providers Copied on Encounter [facility], [address], [place], [place], [id number], [place] tel:[phone] [facility] No Information Demarco Evans. [address] [facility], [address] [place] [address], [place], [place], [id number] , [place]. tel:[phone] [facility], [address], [place], [place], [id number], tel:[phone] [facility] No Information 4 Demarco Sajidul. [address] [facility], [address], [id number] , . tel: [phone] Referring Provider: Janine Antunez [address] [address], [place], [place], [facility]. [facility], [address], [place], [place], [id number], tel:[phone] [facility] No Information 4 Demarco Sajidul. [address] [facility], [address], [id number] , . tel: [phone] Referring Provider: Janine Antunez [address] [address], [place], [place], [facility]. OFFICE HBDWR-VPO-NIP EDWIN [facility], [address], [place], [place], [id number], tel:[phone] [facility] Rectal bleeding (chief complaint)G ERD (chief complaint) Gastroesophageal reflux disease with esophagitis without hemorrhageRectal bleedingDiarrhea, unspecified type 4 Demarco Sajidul. [facility], [address], [id number] , [place]. tel: [phone] Referring Provider: Janine Antunez [address] [address], [place], [address]. [facility], [address], [place], [place], [id number], tel:[phone] [facility] No Information 4 Demarco Sajidul. [address] [facility], [address], [id number] , [place]. tel: [phone] Referring Provider: Janine Antunez [address] [address], [place], [address]. [facility], [address], [place], [place], [id number], tel:[phone] [facility] No Information 4 Demarco Sajidul. [address] [facility], [place] [address], [place], [place], [id number] , [place]. tel:[phone] Referring Provider: Janine Antunez, [address] [facility] [address], [place], [address]. Family History Family Member Type Diagnosis Age At Onset Maternal grandfather Problem Irritable bowel synd samantha Mother Problem Irritable bowel syndrome Maternal grandfather Problem Ulcerative colitis Mother Problem Ulcerative colitis Problem Family history of Heart Dise ase Payers Payer name Insurance type Covered democrat ID Authoriza tigarret(s) [facility] [id number] Social History Type Description Quantity Date Captured Comments Alcohol Use Details Unknown Caffeine Use Details Unknown Tobacco Use Status No Information Smoking Status No Information Sex Male Sexual Orientation Straight or heterosexual Gender Identity Male Chief Complaint And Reason For Visit No Information Reason For Referral Reason For Referral No Information Plan Of Treatment Date Type Action Status Referral Ordered: COLONOSCOPY, FLEXIBLE, DIAGNOSTIC W/ COLLECTION OF SPECIMEN ordered History Of Present Illness Encounter Date Complaint History Of Prese nt Illness Rectal bleeding Onset: gradual. Severity level is mild-moderate. Location is Anal. Duration 2 to 3 years. Quality: BRBPR w/out bowel movement and wipe-type lasts 4-5 days then stops. It occurs weekly. The problem is unchanged. Associated symptoms include bloating and heartburn. Pertinent negatives include abdominal distention, abdominal pain, change in bowel habits, constipation, decreased appetite, diarrhea, nausea, perirectal itching, vomiting and weight loss. Additional information: gets LLQ pain with bleeding, mucous. 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 GERD The onset of the heartburn was gradual. Duration: 7 Years. The problem is improving. The patient reports heartburn. It occurs randomly. Context: treatment with PPIs. The symptoms are aggravated by large meals and spicy foods. Associated symptoms include reflux. Pertinent negatives include aspiration, awakens w/ choking or heartburn, chronic cough, dental erosions, dysphagia, dyspnea, globus sensation, halitosis, hoarseness, melena, nausea, pneumonitis, post-nasal drainage, sore throat, stridor, vomiting, weight gain and weight loss. Additional information: Gastritis and reflux esophagitis noted on EGD 11/07/23, 56 Fr. Butler eso dilation done. Omeprazole 40mg QAM and famotidine 40mg QHS helping. Functional Status Date Functional Assessmen t No Information Instructions Date Instruction Additional Infor kylie Disease process Assessments Type Assessment Date No Information Patient Care Teams Name Effective Dates (start - stop) Status Members No Information
--- OUTSIDE RECORDS SUMMARY | 2024-08-21 09:45 | XMS_ITS | Data Portability ---
Author Organization [facility], [facility] Address [address] [place] [address] Assessment No assessment recorded. Plan of Treatment Reminders Order Date Submit Date Provider Last Modified By Organization Details Last Modified Time Details Appointments None record ed. Lab None record ed. Referral None record ed. Procedures None record ed. Surgeries None record ed. Imaging None record ed. Medication Orders None record ed. Patient TargetsNo targets recorded. Patient InstructionsNo instructions recorded. Reason for Referral None Reported. Results Created Date Observation Date Name Description Value Unit Range Abnormal Flag Note LastModifiedBy Organization Detail LastModifiedTime 07/27/19 23 colon oscop y proce dure (PROC ) No observ ation record ed. [address] (Central Scheduling) [address] [place] [address], [id number], 07/26/2022 11:44:33 Result Notes None recorded. Problems Name Problem SNOMED Code Status Onset Date Resolution Date Notes Provider Name and Address Organization Details Recorded Time [place] 798153141 Active 2022 Demetria escalante [facility] 3 15:53:37 Mild memory disturbanc e 631710177 Active 2021 Not Available [facility] 3 04:42:13 Anxiety state 874073136 Active Not Available [facility] 3 04:42:13 Mixed anxiety and depressive disorder 784438201 Active 2021 Not Available [facility] 3 04:42:13 History of methamphet amine abuse 0504923947664 4101 Active 2021 Not Available [facility] 3 04:42:13 History of SARS-CoV-2 8622388372635 30214 Active 2021 Not Available [facility] 3 04:42:13 Genital herpes simplex 90147723 Active Not Available [facility] 3 04:42:13 Mood disorder 89027486 Active 2021 Not Available [facility] 3 04:42:13 Fatigue 60406362 Active Not Available [facility] 3 04:42:13 Herpes simplex 11830031 Active Not Available [facility] 3 04:42:14 Hemorrhagi c diarrhea 01183015 Active 2021 Not Available [facility] 3 04:42:14 Problem Notes None recorded. Procedures Surgical History None recorded. Imaging Results Imaging Date Name Status LastModified by Organiz ation Details LastModified Time 07/26/2022 colonoscopy procedure (PROC) completed [address] (Central [facility]) [address] [place] [address], [id number], 07/26/2022 11:44:33 Procedure Notes None recorded. Medical Equipment None Reported. Medications Name Sig Start Date Stop Date Status Note LastModified by Organization Details LastModified Time prednisone 10 mg tablet TAKE 4 TABS DAILY X7 DAYS, TAKE 3 TABS X7 DAYS, TAKE 2 TABS DAILY X7 DAYS, TAKE 1 TAB DAILY X7 DAYS. 07/07 completed Not Available Not Available Not Available Effexor XR 75 mg capsule,ext ended release Take 1 capsule every day by oral route. 07/07 completed Not Available Not Available Not Available trazodone 50 mg tablet TAKE 1 TABLET (50 MG TOTAL) BY MOUTH NIGHTLY AT BEDTIME 07/07 completed Not Available Not Available Not Available azithromyci n 250 mg tablet take as directed 07/07 completed Not Available Not Available Not Available ibuprofen 800 mg tablet 02/02 completed Not Available Not Available Not Available valacyclovi r 1 gram tablet Take 1 tablet 3 times a day by oral route for 7 days. 02/02 completed Not Available Not Available Not Available hydrocodone 5 mg-acetamin ophen 325 mg tablet 02/02 completed Not Available Not Available Not Available prednisone 20 mg tablet TAKE 2 TABLETS BY MOUTH ONCE DAILY X 5 DAYS. TAKE WITH FOOD. active Not Available Not Available No t Available acyclovir 400 mg tablet Take 1 tablet twice a day by oral route. 02/02 completed Not Available Not Available Not Available sulfamethox azole 800 mg-trimetho prim 160 mg tablet 02/02 completed Not Available Not Available Not Available tramadol 50 mg tablet 02/02 completed Not Available Not Available Not Available acyclovir 800 mg tablet Take 1 tablet every day by oral route for 30 days. active Not Available Not Available No t Available amoxicillin 875 mg tablet active Not Available Not Available Not Available clindamycin 1 % topical gel active Not Available Not Available Not Available ciprofloxac in 0.3 % eye drops INSTILL 1 DROP INTO RIGHT EYE EVERY 2 HOURS 07/07 completed Not Available Not Available Not Available cephalexin 500 mg capsule active Not Available Not Available Not Available diclofenac 0.1 % eye drops INSTILL 1 DROP THREE TIMES A DAY IN THE RIGHT EYE FOR 6 DAYS 07/07 completed Not Available Not Available Not Available neomycin-po lymyxin-dex ameth 3.5 mg/mL-10,00 0 unit/mL-0.1 % eye drops PLEASE SEE ATTACHED FOR DETAILED DIRECTION S 07/07 completed Not Available Not Available Not Available fluorometho lone 0.1 % eye drops,suspe nsion active Not Available Not Available Not Available omeprazole 20 mg capsule,del ayed release Take 1 capsule every day by oral route for 30 days. active Not Available Not Available No t Available amoxicillin 250 mg capsule 10/01 completed Not Available Not Available Not Available hydroxychlo roquine 200 mg tablet TAKE 2 TABLETS BY MOUTH ONCE A DAY 07/07 completed Not Available Not Available Not Available fluoxetine 20 mg capsule Take 1 capsule every day by oral route for 30 days. 08/11 completed Not Available Not Available Not Available fluticasone propionate 50 mcg/actuati on nasal spray,suspe nsion Inhale 2 sprays every day by intranasa l route. active Not Available Not Available No t Available naproxen 500 mg tablet 07/07 completed Not Available Not Available Not Available amoxicillin 875 mg-potassiu m clavulanate 125 mg tablet active Not Available Not Available Not Available Lexapro 10 mg tablet Take 1 tablet every day by oral route for 30 days. active Not Available Not Available No t Available Chantix Starting Month Jaziel 0.5 mg (11)-1 mg (42) tablets in dose pack as directed by starting pack instructi on 10/01 completed Not Available Not Available Not Available GaviLyte-G 236 gram-22.74 gram-6.74 gram-5.86 gram oral solution DIRECTED 08/23 completed Not Available Not Available Not Available Vraylar 1.5 mg capsule TAKE 1 CAPSULE BY MOUTH DAILY. 07/07 completed Not Available Not Available Not Available Vitals Date Recorded Body mass index (BMI) Body height Oxygen saturation Oxygen saturation in Arterial blood by Pulse oximetry Heart rate Body temperature Body weight Systolic blood pressure Diastolic blood pressure Provider Name and Address Organization Details Last Updated DateTime 2 28 kg/m2 180.34 cm 98 % 98 % 75 /min 96.8 [degF] 48947.0 7 g 118 mm[Hg] 78 mm[Hg] Not Available [facility] 3 04:41:59 Date Recorded Body mass index (BMI) Body height Oxygen saturation Oxygen saturation in Arterial blood by Pulse oximetry Heart rate Body temperature Body weight Systolic blood pressure Diastolic blood pressure Provider Name and Address Organization Details Last Updated DateTime 2 28.7 kg/m2 180.34 cm 95 % 95 % 85.99 /min 97.7 [degF] 33921.0 3 g 126 mm[Hg] 78 mm[Hg] Not Available [facility] 3 04:41:59 Date Recorded Body mass index (BMI) Body height Oxygen saturation Oxygen saturation in Arterial blood by Pulse oximetry Heart rate Body temperature Body weight Provider Name and Address Organization Details Last Updated DateTime 2 27.9 kg/m2 180.34 cm 99 % 99 % 58 /min 97.4 [degF] 43837.4 7 g Not Available [facility] 3 04:42:01 Date Recorded Body mass index (BMI) Body height Oxygen saturation Oxygen saturation in Arterial blood by Pulse oximetry Heart rate Body temperature Body weight Systolic blood pressure Diastolic blood pressure Provider Name and Address Organization Details Last Updated DateTime 2 27.8 kg/m2 180.34 cm 98 % 98 % 71 /min 97.9 [degF] 86122.8 8 g 124 mm[Hg] 80 mm[Hg] Not Available [facility] 04:41:59 Social History Question Answer Notes LastModified by Organizat ion Details LastModified Time Tobacco Smoking Status Never Smoker Not Available [facility] 05/22/2022 04:41:01 Do You Have An Advance Directive? No [id number] Information not available 05/22/2022 What Is Your Level Of Alcohol Consumption? Occasional [id number] Information not available 05/22/2022 What Is Your Level Of Caffeine Consumption? Moderate [id number].[id number] Information not available 05/22/2022 In The 14 Days Before Symptom Onset, Have You Had Close Contact With A Laboratory-confir med COVID-19 While That Case Was Ill? No [id number] Information not available 05/22/2022 In The 14 Days Before Symptom Onset, Have You Had Close Contact With A Person Who Is Under Investigation For COVID-19 While That Person Was Ill? No [id number] Information not available 05/22/2022 Are You Currently Employed? No [id number] Information not available 05/22/2022 What Type Of Diet Are You Following? REGULAR [id number].[id number] Information not available 05/22/2022 Do You Or Have You Ever Used E-cigarettes Or Vape? Current User Of Electronic Cigarettes [id number].[id number] Information not available 05/22/2022 What Is The Highest Grade Or Level Of School You Have Completed Or The Highest Degree You Have Received? 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 No MIGRATION.[id number] [id number] Information not available 05/22/2022 Do You Feel Safe At Home Yes [id number] Information not available 05/22/2022 Do You Have A Medical Power Of Car Repair Supervisor? No MIGRATION.[id number] 3200 Information not available 05/22/2022 What Is Your Relationship Status? MIGRATION.[id number] Information not available 05/22/2022 Do You Use Your Seat Belt Or Car Seat Routinely? Yes [id number].[id number] 5017 Information not available 05/22/2022 Do You Participate In Social Media? Yes MIGRATION.[id number] 7473 Information not available 05/22/2022 Do You Feel Stressed (tense, Restless, Nervous, Or Anxious, Or Unable To Sleep At Night)? [id number] MIGRATION.250324 7395 Information not available 05/22/2022 Do You Use Any Illicit Or Recreational Drugs? No MIGRATION.[id number] 5634 Information not available 05/22/2022 Have You Recently Traveled Abroad? No MIGRATION.[id number] Information not available 05/22/2022 Are You Currently In School? No MIGRATION.[id number] 4013 Information not available 05/22/2022 Do You Or Have You Ever Used Any Other Forms Of Tobacco Or Nicotine? Yes MIGRATION.[id number] 7300 Information not available 05/22/2022 Sex: Male Functional Status Question Answer Note LastModified by Organizat ion Details LastModified Time What is your exercise level? None [id number] Information not available 05/22/2022 Mental Status None recorded. Family History Relationship Description Onset Age of this Age Resolved Age Notes LastModified by Organization Details LastModified Time Father No current problems or disability [id number] Not available 05/22/2022 04:41:15 Mother No current problems or disability [id number] Not available 05/22/2022 04:41:15 Mother Ulcerative colitis [id number] Not available 05/22/2022 04:41:15 Medical History No medical history recorded. Past Encounters Encounter ID Performer Location Encounter Start Date Encounter Closed Date Diagnosis/Indication Diagnosis SNOMED-CT Code Diagnosis ICD10 Code Diagnosis Note [id number] _ATHENA_M IGRATION_ DEFAULT_1 _5 , 07/07/2021 00:00:00 07/07/2021 08:45:38 [id number] DISP_RB GASTROENT EROLOGY [address] [facility], [address] [place] [address] 08/11/2021 00:00:00 08/11/2021 12:57:53 [id number] _ATHENA_M IGRATION_ DEFAULT_1 _5 , 08/23/2021 00:00:00 08/23/2021 16:36:10 [id number] _ATHENA_M IGRATION_ DEFAULT_1 _5 , 02/16/2022 00:00:00 02/21/2022 09:20:53 Health Concerns Section Related Observation LastModified by Organization Detai ls LastModified Time None Recorded Concern Status LastModified by Organization Details LastModified Time None Recorded Advance Directives Directive N: Payers None recorded.
--- OUTSIDE RECORDS SUMMARY | 2024-08-21 09:45 | XMS_ITS | Clinical Summary ---
Author Organization [facility] Address [address] [place] [address] Care Team Providers Care Internal Medicine Physician Assistant Name Role Phone Tico Wilder MD Primary Care Provider [phone] Carlos Eisenberg MD Unavailable [phone] Source Comments [facility],non-owned Affiliates and Associated Physician Practices is amultiple site organization consisting of ambulatory clinics and hospital sitesin [place], [place], [place] and [place]. This disclosure is being madepursuant to the Care Everywhere program and may not contain all information available regarding this patient. Last updated 18.[facility] Allergies No known active allergies Medications Be aware that medications may not be up to date on this document. Always verify current medications with the patient. No known medications Active Problems Problem Noted Date Diagnosed Date Left shoulder pain 10/21/2015 Shoulder injury 10/21/2015 Social History Tobacco Use Types Packs/Day Years Used Date Smoking Tobacco: Every Day Alcohol Use Standard Drinks/Week Comments No 0 (1 standard drink = 0.6 oz pur e alcohol) Sex and Gender Information Value Date Recorded Sex Assigned at Not on file Gender Identity Not on file Sexual Orientation Not on file Last Filed Vital Signs Vital Sign Reading Time Taken Comments Blood Pressure 132/87 10/11/2015 6:45 PM CDT Pulse 82 10/11/2015 6:45 PM CDT Temperature 36.7 C (98.1 F) 10/11/2015 6:45 PM CDT Respiratory Rate 20 01/10/2015 4:35 AM CDT Oxygen Saturation 99% 10/11/2015 6:45 PM CDT Inhaled Oxygen Concentration - - Weight 90.7 kg (200 lb) 10/21/2015 8:51 AM CDT Height 165.1 cm (5' 5 ) 10/21/2015 8:51 AM CDT Body Mass Index 33.28 10/21/2015 8:51 AM CDT Plan of Treatment Health Maintenance Due Date Last Done Comments HIV SCREENING 01/04/2008 HEPATITIS C SCREENING 12/30/2010 DTAP/TDAP/TD VACCINES (1 - Tdap) 01/04/2012 HEPATITIS B VACCINE (1 of 3 - 19+ 3-dose series) 01/04/2012 COVID-19 VACCINE (1 - 2023-2 5 season) 2024 DEPRESSION SCREENING 05/15/2024 INFLUENZA VACCINE (Season Ended) 2025 ZOSTER VACCINE (1 of 2) 2043 HIB VACCINE Aged Out No longer eligi ble based on patient's age to complete this topic HPV VACCINE Aged Out No longer eligi ble based on patient's age to complete this topic MENINGOCOCCAL (Group B) VACC INE SHARED DECISION-MAKING Aged Out No longer eligibl e based on patient's age to complete this topic MENINGOCOCCAL GROUPS A/C/Y/W VACCINE Aged Out No longer eligible b ased on patient's age to complete this topic PNEUMOCOCCAL VACCINE Aged Out No long er eligible based on patient's age to complete this topic Care Teams Internal Medicine Physician Assistant Relationship Specialty Start Date End Date Tico Wilder MD PCP - General Internal Medicine 01/09/15 Carlos Eisenberg MD Orthopedic Surgery 10/21/15
--- OUTSIDE RECORDS SUMMARY | 2024-08-21 09:45 | XMS_ITS | Patient Health Record ---
Author Organization [facility] Address [address] [facility] [address] [place] [address] Care Team Providers Care Certified Ophthalmic Assistant Name Role Phone Janine Antunez APRN Primary Care Provider Nataliia Gonzalez Unavailable [phone] Regis Abdelrahman Unavailable [phone] Allergies Allergen (clinical drug ingredient) Drug/Non Drug Allergy documented on EMR Reaction Allergy Type Onset Date Status amoxicillin Amoxicillin Unknown Drug Allergy Act mary lou Results Component Value Reference Range Notes UDT Reviewed date:06/18/2024 03:57:27 PM Interpretation: Performing Lab: Notes/Report: THC NEG 0 - 50 ng/ml Cocaine NEG 0 - 300 ng/ml Amphetamine POS 0 - 1000 ng/ml Buprenorphine (BUP) NEG 0 - 10 ng/ml Secobarbital (Bar) NEG 0 - 300 ng/ml Oxazepam (BZO) NEG 0 - 300 ng/ml 5-jiqtkhypgt-7,3-nqgomqao-7,3-diphenylpyrrolidine (NADIA P) NEG 0 - 300 ng/ml Methamphetamine (MET) NEG 0 - 1000 ng/ml Methylenedioxymethamphetamine (MDMA) NEG 0 - 500 ng/ml Morphine (MOP 300/[id number]) NEG 0 - 300 ng/ml Methadone (MTD) NEG 0 - 300 ng/ml Phencyclidine (PCP) NEG 0 - 25 ng/ml Nortriptyline (TCA) NEG 0 - 1000 ng/ml Oxycodone NEG 0 - 300 ng/ml x NEG 0 - 300 ng/ml UDT Reviewed date:04/03/2024 03:45:40 PM Interpretation: Performing Lab: Notes/Report: THC n 0 - 50 ng/ml Cocaine n 0 - 300 ng/ml Amphetamine n 0 - 1000 ng/ml Buprenorphine (BUP) n 0 - 10 ng/ml Secobarbital (Bar) n 0 - 300 ng/ml Oxazepam (BZO) n 0 - 300 ng/ml 4-qejpmnujte-6,3-efrjdmsy-7,3-diphenylpyrrolidine (NADIA P) n 0 - 300 ng/ml Methamphetamine (MET) n 0 - 1000 ng/ml Methylenedioxymethamphetamine (MDMA) n 0 - 500 ng/ml Morphine (MOP 300/[id number]) n 0 - 300 ng/ml Methadone (MTD) n 0 - 300 ng/ml Phencyclidine (PCP) n 0 - 25 ng/ml Nortriptyline (TCA) n 0 - 1000 ng/ml Oxycodone n 0 - 300 ng/ml x n 0 - 300 ng/ml UDT Reviewed date:03/19/2024 09:36:26 AM Interpretation: Performing Lab: Notes/Report: THC n 0 - 50 ng/ml Cocaine n 0 - 300 ng/ml Amphetamine n 0 - 1000 ng/ml Buprenorphine (BUP) n 0 - 10 ng/ml Secobarbital (Bar) n 0 - 300 ng/ml Oxazepam (BZO) n 0 - 300 ng/ml 5-jpzfeijklo-2,2-wdiqxmcq-0,3-diphenylpyrrolidine (NADIA P) n 0 - 300 ng/ml Methamphetamine (MET) n 0 - 1000 ng/ml Methylenedioxymethamphetamine (MDMA) n 0 - 500 ng/ml Morphine (MOP 300/[id number]) n 0 - 300 ng/ml Methadone (MTD) n 0 - 300 ng/ml Phencyclidine (PCP) n 0 - 25 ng/ml Nortriptyline (TCA) n 0 - 1000 ng/ml Oxycodone n 0 - 300 ng/ml x n 0 - 300 ng/ml Reason For Referral No Information Medications Medication SIG (Take, Route, Frequency, Duration) Notes Start Date End Date Status Amphetamine-Dextroamphet ER 30 MG 1 capsule in the morning Orally Once a day for 30 days 07/26/2024 Active Social History Tobacco Use: Social History Observation Description Date Details (start date - stop date) Former Smoker 05/15/2006 - 05/15/2023 Sex Assigned At : Social History Observation Description Sex Assigned At Male Tobacco Control (Standard) Question Answer Notes Tobacco use: Former smoker When did you start smoking? 05/15/2006 When did you stop smoking? 05/15/2023 How long has it been since you last smoked? 3-6 months AUDIT-C (Standard) Question Answer Notes Did you have a drink contain ing alcohol in the past year? Yes How often did you have six o r more drinks on one occasion in the past year? Less than monthly (1 point) How many drinks did you have on a typical day when you were drinking in the past year? 10 or more drinks (4 points) How often did you have a dri nk containing alcohol in the past year? Monthly or less (1 point) Problems Problem Type SNOMED Code ICD Code Onset Dates Problem Status W/U Status Risk Notes Problem Generalized anxiety disorder (80894147) MELCHOR (generalized anxiety disorder) (F41.1) Active confirmed Problem Attention deficit hyperactivity disorder (733091428) ADHD (attention deficit hyperactivity disorder), combined type (F90.2) Active confirmed Vital Signs Heart Rate 53 /min 06/18/2024 Height-cm 180.34 cm 06/18/2024 Blood pressure diastolic 76 mm Hg 06/18/2024 Weight-kg 92.08 kg 06/18/2024 Height 71 in 06/18/2024 Blood pressure systolic 117 mm Hg 06/18/2024 Weight 203 lbs 06/18/2024 BMI 28.31 kg/m2 06/18/2024 Procedures Procedure Date Ordered Date Performed Result Body Sit e ADHD Testing 03/19/2024 N/A ADHD Testing 04/02/2024 N/A Encounters Encounter Location Date Provider Diagnosis [facility] [address] [facility] [address] [place] [address] 03/19/2024 Nataliia Zeus MELCHOR (generalized anxiety disorder) F41.1 and ADHD (attention deficit hyperactivity disorder), combined type F90.2 [facility] [place] [address] 04/02/2024 Abdelrahman Stacy ADHD (attention defi cit hyperactivity disorder), combined type F90.2 [facility] [address] [place] [address] 04/09/2024 Nataliia Zeus MELCHOR (generalized anxiety disorder) F41.1 and ADHD (attention deficit hyperactivity disorder), combined type F90.2 [facility] [address] [place] [address] 06/18/2024 Nataliia Zeus MELCHOR (generalized anxiety disorder) F41.1 and ADHD (attention deficit hyperactivity disorder), combined type F90.2 [facility] [address] [place] [address] 04/13/2024 Nataliia Zeus ADHD (attention defi cit hyperactivity disorder), combined type F90.2 [facility] [address] [facility] [address] [place] [address] 05/26/2024 Nataliia Zeus [facility] [address] [place] [address] 06/03/2024 Nataliia Zeus ADHD (attention defi cit hyperactivity disorder), combined type F90.2 [place] [facility] [address] [facility] [address] [place] [address] 07/26/2024 Nataliia Zeus [place] [address] [facility] [address] [facility] [address] [place] [address] 07/26/2024 Nataliia Zeus ADHD (attention defi cit hyperactivity disorder), combined type F90.2 Assessments Encounter Date Diagnosis (ICD Code) Assessment Notes Treatment Notes Treatment Clinical Notes Section Notes 03/19/2024 MELCHOR (generalized anxiety disorder) (ICD-10 - F41.1) 03/19/2024 ADHD (attention deficit hyperactivity disorder), combined type (ICD-10 - F90.2) diagnosis pending evaluation results 04/02/2024 ADHD (attention deficit hyperactivity disorder), combined type (ICD-10 - F90.2) 04/09/2024 MELCHOR (generalized anxiety disorder) (ICD-10 - F41.1) SSRI/SNRI side effects discussed including but not limited to, gastric upset, nausea, vomiting, diarrhea and/or constipation, weight changes, sexual side effects including loss of libido, increased suicidal thoughts/behavio rs in children and young adults, and serotonin syndrome. 1. MELCHOR severe, no change -discontinue buspar due to side effects -hx poor response to SSRI, triggered depressive symptoms -start duloxetine 20mg daily for anxiety 2. ADHD ADHD evaluation reviewed, supportive of diagnosis history of treatment in childhood, responded well to Adderall -Start Adderall XR 10mg daily for ADHD management, increase as tolerated -UDT done at initial apt and ADHD testing apt, both negative -discussed controlled substance policy 04/13/2024 ADHD (attention deficit hyperactivity disorder), combined type (ICD-10 - F90.2) 06/03/2024 ADHD (attention deficit hyperactivity disorder), combined type (ICD-10 - F90.2) 06/18/2024 MELCHOR (generalized anxiety disorder) (ICD-10 - F41.1) SSRI/SNRI side effects discussed including but not limited to, gastric upset, nausea, vomiting, diarrhea and/or constipation, weight changes, sexual side effects including loss of libido, increased suicidal thoughts/behavio rs in children and young adults, and serotonin syndrome. 07/26/2024 ADHD (attention deficit hyperactivity disorder), combined type (ICD-10 - F90.2) 06/18/2024 ADHD (attention deficit hyperactivity disorder), combined type (ICD-10 - F90.2) 04/09/2024 ADHD (attention deficit hyperactivity disorder), combined type (ICD-10 - F90.2) 1. MELCHOR severe, no change -discontinue buspar due to side effects -hx poor response to SSRI, triggered depressive symptoms -start duloxetine 20mg daily for anxiety 2. ADHD ADHD evaluation reviewed, supportive of diagnosis history of treatment in childhood, responded well to Adderall -Start Adderall XR 10mg daily for ADHD management, increase as tolerated -UDT done at initial apt and ADHD testing apt, both negative -discussed controlled substance policy 03/19/2024 Other Start Buspar 5mg BID for anxiety. Patient educated on all medications including potential benefits, side effects, risks. Educated on proper dosing schedule and importance of compliance. Schedule for ADHD evaluation to rule in or rule out diangosis 04/09/2024 Other Discontinue Buspar due to side effects. Start duloxetine 20mg daily for anxiety ADHD eval reviewed, supportive of diagnosis Start Adderall XR 10mg daily; discussed monitoring for increased anxiety, irritability. Patient educated on all medications including potential benefits, side effects, risks. Educated on proper dosing schedule and importance of compliance. [place] checked and consistent with prescription history, no controlled substance prescriptions from other providers. 1. MELCHOR severe, no change -discontinue buspar due to side effects -hx poor response to SSRI, triggered depressive symptoms -start duloxetine 20mg daily for anxiety 2. ADHD ADHD evaluation reviewed, supportive of diagnosis history of treatment in childhood, responded well to Adderall -Start Adderall XR 10mg daily for ADHD management, increase as tolerated -UDT done at initial apt and ADHD testing apt, both negative -discussed controlled substance policy 06/18/2024 Other Discontinue duloxetine Continue Adderall er 30mg daily for ADHD management Patient educated on all medications including potential benefits, side effects, risks. Educated on proper dosing schedule and importance of compliance. [place] report checked and consistent with prescription history, no controlled substance prescriptions from other providers. UDT reviewed -Assessment and treatment plan reviewed with patient. -Compliance with treatment plan importance discussed. -Discussed the risks/benefits of this medication -Discussed medication side effects. -Contact office if symptoms worsen. -Discussed that it can take up to 6-8 weeks to see full therapeutic effects of psychotropic medications. -Crisis prevention hotline 344. Plan Of Treatment Pending Test Test Name Order Date ADHD Testing 03/19/2024 ADHD Testing 04/02/2024 Next Appt Details Provider Name:Nataliia Schulz, 10/16/2024 03:15:00 PM, [address], [address], [place], [address], Insurance Providers Payer Name Payer Address Payer Phone Subscriber Number Group Number Insured Name Patient Relationship to Insured Coverage Start Date Coverage End Date [facility] [address] [place] [address] [id number] Dick Goldberg Self - patient is the insured Medical (General) History Medical History History ICD Code Allergies Anxiety Asthma GERD Hx of frequent headaches Hx of IBS Shortness of Breath abdominal aortic aneurysm: No undefined atrial fibrillation: No chronic fatigue syndrome: No essential tremor: No hyperlipidemia: No hypertension: No Parkinson's disease: No restless leg syndrome: No stroke: No subdural hematoma: No type 1 diabetes mellitus: No type 2 diabetes mellitus: No vitamin B12 deficiency: No vitamin D deficiency: No
--- OUTSIDE RECORDS SUMMARY | 2024-08-21 09:45 | XMS_ITS | Clinical Summary ---
Author Organization [facility] Address [address] [place] [address] Care Team Providers Care Ticket Seller Name Role Phone Unavailable Primary Care Provider Unavailabl e Social History Tobacco Use Types Packs/Day Years Used Date Smoking Tobacco: Never Assessed Sex and Gender Information Value Date Recorded Sex Assigned at Not on file Legal Sex Male 12:07 AM CDT Gender Identity Not on file Sexual Orientation Not on file Plan of Treatment Health Maintenance Due Date Last Done Comments Hepatitis C Virus (HCV) Screening 1993 Hepatitis B Immunization (1 of 3 - 19+ 3-dose series) 01/04/2012 Influenza Immunization (#1) 2024 SARS-COV-2 Immunization (2023- season) 2024 Respiratory Syncytial Virus (RSV) Immunization (Adult) (1 - 1-dose 75+ series) 01/04/2068 DTaP/Tdap/Td Immunization Discontinued 12/14/2016 TdaP Immunization Completed 12/14/2016 Meningococcal Immunization (ACWY) Aged Out No longer eligible based on patient's age to complete this topic Pneumococcal Immunization Combined Aged Out No longer eligible b ased on patient's age to complete this topic Rotavirus Immunization Aged Out No lo nger eligible based on patient's age to complete this topic Insurance [employer] on file
--- OUTSIDE RECORDS SUMMARY | 2024-08-21 09:46 | XMS_ITS | Clinical Summary ---
Author Organization [facility] Address [address] [place] [address] Care Team Providers Care Welt Pocket Machine Operator Name Role Phone Harshad Sheikh Primary Care Provide r Allergies No known active allergies Medications albuterol HFA (PROVENTIL HFA,VENTOLIN HFA,PROAIR HFA) 90 mcg/actuation inhaler Inhale 2 puffs every 4 (four) hours as needed 02/11/20 20 Active clindamycin (CLINDAGEL) 1 % gel Apply topically 2 (two) times a day 05/12/20 22 Active valACYclovir (VALTREX) 500 mg tablet Take 1 tablet (500 mg total) by mouth daily 06/22/19 21 Active meclizine (ANTIVERT) 12.5 mg tabletIndications: Vertigo Take 1 tablet (12.5 mg total) by mouth 3 (three) times a day as needed for dizziness 90 tablet 4 12/07/19 23 Active Additional Information Patient not taking.Reported on 04/19/2023 ondansetron ODT (ZOFRAN-ODT) 4 mg disintegrating tabletIndications: Vertigo Take 1 tablet (4 mg total) by mouth every 8 (eight) hours as needed for nausea or vomiting 10 tablet 12/07/19 23 Active Additional Information Patient not taking.Reported on 04/19/2023 acyclovir (ZOVIRAX) 800 mg tablet Take 1 tablet every day by oral route for 30 days. Active escitalopram (Lexapro) 10 mg tablet Take 1 tablet every day by oral route for 30 days. Active fluorometholone (FML) 0.1 % ophthalmic suspension Active fluticasone propionate (FLONASE) 50 mcg/actuation nasal spray Inhale 2 sprays every day by intranasal route. 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 No Neovascularization on exam. Excellent visual acuity (VA) both eyes (OU). Follow up Retina PRN Fatigue 04/19/2023 Herpes simplex 04/19/2023 Hematochezia 07/12/2022 Anxiety state 05/11/2022 Genital herpes simplex 05/11/2022 Hemorrhagic diarrhea 08/11/2021 Chest tightness 07/24/2021 Gastrointestinal hemorrhage 07/24/2021 Lightheaded 07/24/2021 History of methamphetamine abuse 07/07/2021 Mild memory disturbance 07/07/2021 Mixed anxiety and depressive disorder 07/07/2021 History of severe acute resp iratory syndrome coronavirus 2 (SARS-CoV-2) disease 07/06/2021 Mood disorder 07/06/2021 Inflammatory arthritis 02/01/2021 SOB (shortness of breath) 02/01/2021 BMI 28.0-28.9,adult 11/27/2019 Laryngopharyngeal reflux 11/27/2019 Polyarthralgia 11/27/2019 Left shoulder pain 10/21/2015 Shoulder injury 10/21/2015 Immunizations Immunization Administration Dates Next Due DTaP 12/14/2016 Hep A, Adult 08/28/2012 Hep A, Unspecified 08/28/2012 Tdap 12/14/2016 Social History Tobacco Use Types Packs/Day Years Used Date Smoking Tobacco: Never Alcohol Use Standard Drinks/Week Comments Not Currently 0 (1 standard drink = 0.6 oz pur e alcohol) Personal Safety Answer Date Recorded Getting School Help Needed Not on file 05/04 Sex and Gender Information Value Date Recorded Sex Assigned at Not on file Legal Sex Male 8:11 AM LINSEED OIL REFINER Gender Identity Not on file Sexual Orientation Not on file Obstetrics History Last Filed Vital Signs Vital Sign Reading Time Taken Comments Blood Pressure 118/62 04/19/2023 2:02 PM LINSEED OIL REFINER Pulse 84 04/19/2023 2:02 PM LINSEED OIL REFINER Temperature 37.1 C (98.7 F) 04/19/2023 2:02 PM LINSEED OIL REFINER Respiratory Rate 16 04/19/2023 2:02 PM LINSEED OIL REFINER Oxygen Saturation 98% 04/19/2023 2:02 PM LINSEED OIL REFINER Inhaled Oxygen Concentration - - Weight 93.9 kg (207 lb) 04/19/2023 2:02 PM LINSEED OIL REFINER Height 180.3 cm (5' 11 ) 04/19/2023 2:02 PM LINSEED OIL REFINER Body Mass Index 28.87 04/19/2023 2:02 PM LINSEED OIL REFINER Plan of Treatment Health Maintenance Due Date Last Done Comments Depression Screening 1993 Hepatitis C Screening 1993 Varicella Vaccines (1 of 2 - 13+ 2-dose series) 2006 Hepatitis B Screening 2011 Regular Well Visit/Exam 18-64 2011 Influenza Vaccine (#1) 2024 DTaP/Tdap/Td Vaccine (3 - Td or Tdap) 12/14/2026 12/14/2016, 12/14/2016 HPV Vaccines Aged Out No longer eligi ble based on patient's age to complete this topic Pneumococcal vaccine <65 Aged Out No longer eligible based on patient's age to complete this topic [place] Care Teams Welt Pocket Machine Operator Relationship Specialty Start Date End Date Harshad Sheikh DO [address] [place] [phone] PCP - General Family Medicine 04/14/20
--- OUTSIDE RECORDS SUMMARY | 2024-08-21 09:46 | XMS_ITS | Encounter Summary ---
Author Organization [facility] Address [facility] [place] [address] Care Team Providers Care Marine Electrician Apprentice Name Role Phone Aguilar Harshad Yared PEGUERO Primary Care Provider + Mare Johnson [facility] Primary Care Provider Unav ailable David Weir MD Primary Care Provider Un available None, Provider Primary Care Provider Unavaila ble Reason for Visit * Reason Onset Date Comments Lab Results 10/23/2019 Encounter Details Date Type Department Care Team (Late st Contact Info) Description 10/23/2019 Figure 1t Message Enc [facility] Family Medicine [facility] [address] [place] [id number] Justin Cotton MD [address] [place] [phone] RE: Test Results Social History Tobacco Use Types Packs/Day Years [...] on file Legal Sex Male 3:11 PM SENIOR ENGINEERING MANAGER Gender Identity Not on file Sexual Orientation Not on file COVID-19 Exposure Response Date Recorded In the last month, have you been in contact with someone who was confirmed or suspected to have Coronavirus / COVID-19? No / Unsure 10/22/2019 11:30 AM CDT documented as of this encounter Progress Notes * Bertha Boone MA - 10/24/2019 1:35 PM CDT Can you please address these? He has a new patient appt with Dr Mg in November but he saw you at [facility] 10/18/19. * Amelie Cisse - 10/24/2019 1:26 PM CDT Patient called in asking about his test results. He was advised to call in today. documented in this encounter Plan of Treatment Not on file documented as of this encounter Visit Diagnoses Not on filedocumented in this encounter Additional Health Concerns Infection Onset Date Last Indicated Resolved Time COVID-19 Rule Out 12/10/2019 12/10/2019 02/08/2020 12:32 AM CDT COVID-19 Rule Out 03/18/2020 03/19/2020 03/30/2020 11:54 AM SENIOR ENGINEERING MANAGER documented as of this encounter Care Teams Marine Electrician Apprentice Relationship Specialty Start Date End Date Harshad Shekih DO [address] [place] [phone] PCP - General FAMILY PRACTICE 11/27/19 05/01/22 [facility] [address] [place] [phone] PCP - General NURSE PRACTITIONER 05/02/22 05/13/22 David Weir MD [address] [place] [id number] PCP - General FAMILY PRACTICE 05/14/22 12/05/22 None, MD Nadege PCP - General UNKNOWN PHYSICIAN SPECIALTY 12/06/22 documented as of this encounter
--- OUTSIDE RECORDS SUMMARY | 2024-08-21 09:46 | XMS_ITS | Referral Summary ---
Author Organization [facility] Address [address] [place] [address] Care Team Providers Care Bridge Inspector Name Role Phone Harshad Sheikh Primary Care [...] 06/07/2023 Assessment & Plan (06/07/2023 3:30 PM HOSPITAL ADMISSIONS OFFICER): Without VMT both eyes (OU). No Neovascularization [...] on file Legal Sex Male 8:11 AM HOSPITAL ADMISSIONS OFFICER Gender Identity Not on file Sexual Orientation Not on file Last Filed Vital Signs Vital Sign Reading Time Taken Comments Blood Pressure 118/62 04/19/2023 2:02 PM HOSPITAL ADMISSIONS OFFICER Pulse 84 04/19/2023 2:02 PM HOSPITAL ADMISSIONS OFFICER Temperature 37.1 C (98.7 F) 04/19/2023 2:02 PM HOSPITAL ADMISSIONS OFFICER Respiratory Rate 16 04/19/2023 2:02 PM HOSPITAL ADMISSIONS OFFICER Oxygen Saturation 98% 04/19/2023 2:02 PM HOSPITAL ADMISSIONS OFFICER Inhaled Oxygen Concentration - - Weight 93.9 kg (207 lb) 04/19/2023 2:02 PM HOSPITAL ADMISSIONS OFFICER Height 180.3 cm (5' 11 ) 04/19/2023 2:02 PM HOSPITAL ADMISSIONS OFFICER Body Mass Index 28.87 04/19/2023 2:02 PM HOSPITAL ADMISSIONS OFFICER Plan of Treatment Not on file [place] [employer] [place] Care Teams Bridge Inspector Relationship Specialty Start Date End Date Harshad Sheikh DO [address] [place] [phone] PCP - General Family Medicine 04/14/20
--- NOTE | 2024-08-21 11:15 | NEURO_ITS ---
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 ? # Bilateral Carpal Tunnel Syndrome, left more than right. ? # Bilateral mild ulnar neuropathy across the elbows. ? # Normal needle/EMG exam. Nerve Conduction Studies Anti Sensory Summary Table ?Stim Site NR Peak (ms) P-T Amp (?V) Site1 Site2 Delta-P (ms) Dist (cm) Hilton (m/s) Left Median Anti Sensory (2-3nd Digit) Wrist ? 3.6 57.0 Wrist 2-3nd Digit 3.6 14.0 39 Wrist ? 3.4 77.7 Wrist 2-3nd Digit 3.6 14.0 39 Right Median Anti Sensory (2-3nd Digit) Wrist ? 3.5 66.7 Wrist 2-3nd Digit 3.5 14.0 40 Wrist ? 3.6 42.9 Wrist 2-3nd Digit 3.5 14.0 40 Left Radial Anti Sensory (Base 1st Digit) Wrist ? 1.9 36.0 Wrist Base 1st Digit 1.9 0.0 Right Radial Anti Sensory (Base 1st Digit) Wrist ? 2.7 7.5 Wrist Base 1st Digit 2.7 0.0 Left Ulnar Anti Sensory (5th Digit) Wrist ? 3.1 47.6 Wrist 5th Digit 3.1 14.0 45 Right Ulnar Anti Sensory (5th Digit) Wrist ? 2.9 63.4 Wrist 5th Digit 2.9 14.0 48 Motor Summary Table ?Stim Site NR Onset (ms) O-P Amp (mV) Site1 Site2 Delta-0 (ms) Dist (cm) Hilton (m/s) Left Median Motor (Abd Poll Brev) Wrist ? 5.4 5.3 Elbow Wrist 5.3 30.0 57 Elbow ? 10.7 9.4 Right Median Motor (Abd Poll Brev) Wrist ? 4.1 2.7 Elbow Wrist 5.2 31.0 60 Elbow ? 9.3 9.0 Left Ulnar Motor (Abd Dig Minimi) Wrist ? 2.9 7.6 A Elbow Wrist 5.5 30.0 55 A Elbow ? 8.4 6.6 B Elbow Wrist 4.2 23.0 55 B Elbow ? 7.1 6.7 Right Ulnar Motor (Abd Dig Minimi) Wrist ? 2.7 7.0 A Elbow Wrist 5.5 31.0 56 A Elbow ? 8.2 5.2 B Elbow Wrist 4.2 23.0 55 B Elbow ? 6.9 4.9 F Wave Studies ?NR F-Lat (ms) L-R F-Lat (ms) Left Median (Mrkrs) (Abd Poll Brev) ? 29.47 0.00 Right Median (Mrkrs) (Abd Poll Brev) ? 29.47 0.00 Left Ulnar (Mrkrs) (Abd Dig Min) ? 30.23 0.70 Right Ulnar (Mrkrs) (Abd Dig Min) ? 30.94 0.70 EMG ?Side Muscle Nerve Root Ins Act Fibs Amp Dur Recrt Comment Right 1stDorInt Ulnar C8-T1 Nml Nml Nml Nml Nml Right Ext Indicis Radial (Post Int) C7-8 Nml Nml Nml Nml Nml Right Ext Digitorum Radial (Post Int) C7-8 Nml Nml Nml Nml Nml Right BrachioRad Radial C5-6 Nml Nml Nml Nml Nml Right PronatorTeres Median C6-7 Nml Nml Nml Nml Nml Right Abd Poll Brev Median C8-T1 Nml Nml Nml Nml Nml Right ABD Dig Min Ulnar C8-T1 Nml Nml Nml Nml Nml Right FlexPolLong Median (Ant Int) C7-8 Nml Nml Nml Nml Nml Right Abd Poll Long Radial (Post Int) C7-8 Nml Nml Nml Nml Nml Left 1stDorInt Ulnar C8-T1 Nml Nml Nml Nml Nml Left Ext Indicis Radial (Post Int) C7-8 Nml Nml Nml Nml Nml Left Ext Digitorum Radial (Post Int) C7-8 Nml Nml Nml Nml Nml Left BrachioRad Radial C5-6 Nml Nml Nml Nml Nml Left PronatorTeres Median C6-7 Nml Nml Nml Nml Nml Left Abd Poll Brev Median C8-T1 Nml Nml Nml Nml Nml Left ABD Dig Min Ulnar C8-T1 Nml Nml Nml Nml Nml MTDD
== END 2024-08-21 09:00 | disposition home or self-care (01) ==
LOC: ANHNEURO 09:01
PROVIDERS: PCP Nurse Practitioner Adult Health; Visit Provider Nurse Practitioner Adult Health
DX: G56.03 Carpal tunnel syndrome, bilateral upper limbs (principal); G56.23 Lesion of ulnar nerve, bilateral upper limbs
CPT/HCPCS: 95886; 95911

== ENCOUNTER 2025-03-17 10:55 | Outpatient (CLI) | payer BC, SELFPAY ==
--- NOTE | ~2025-03-17 | XR_ITS ---
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 COMPARISON: No comparisons available. Findings: No acute fracture or malalignment. No significant degenerative changes. Soft tissues unremarkable. Impression: No acute fracture or malalignment. Reviewed, dictated and finalized at location P. POLLUTION ANALYST Impression: No acute fracture or malalignment.
--- OUTSIDE RECORDS SUMMARY | 2025-03-17 12:25 | XMS_ITS | Clinical Summary ---
Author Organization [facility] [employer] Address [address] [place] [address] Care Team Providers Care Student Finance Advisor Name Role Phone Tico Wilder MD Primary Care Provider [phone] Carlos Eisenberg MD Unavailable Source Comments [facility] [employer],non-owned Affiliates and Associated Physician Practices is amultiple site organization consisting of ambulatory clinics and hospital sitesin [place], [place], [place] and [place]. This disclosure is being madepursuant to the Care Everywhere program and may not contain all information available regarding this patient. Last updated 18.[facility] [employer] Allergies No known active allergies Medications * Be aware that medications may not be up to date on this document. Alwaysverify current medications with the patient. 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 Gender Identity Not on file Sexual [...] 8:51 AM CDT Height 165.1 cm (5' 5) 10/21/2015 8:51 AM CDT Body Mass Index 33.28 10/21/2015 8:51 AM CDT Plan of Treatment Health Maintenance Due Date Last Done Comments HIV SCREENING 01/04/2008 HEPATITIS C SCREENING 12/30/2010 DTAP/TDAP/TD VACCINES (1 - Tdap) 01/04/2012 HEPATITIS B VACCINE (1 of 3 - 19+ 3-dose series) 01/04/2012 HPV VACCINE (1 - 3-dose SCDM series) 01/04/2020 DEPRESSION SCREENING 05/15/2024 COVID-19 VACCINE (1 - 2023-2 5 season) 2025 INFLUENZA VACCINE (#1) 2025 ZOSTER VACCINE (1 of 2) 2043 [...] patient's age to complete this topic Insurance Care Teams Student Finance Advisor Relationship Specialty Start Date End Date Tico Wilder MD PCP - General Internal Medicine 01/09/15 Carlos Eisenberg MD Orthopedic Surgery 10/21/15
--- OUTSIDE RECORDS SUMMARY | 2025-03-17 12:25 | XMS_ITS | Clinical Summary ---
Author Organization [facility] Address [address] [place] [id number] Care Team Providers Care Core Checker Name Role Phone Unavailable Primary Care Provider [...] of 3 - 19+ 3-dose series) 01/04/2012 Human Papillomavirus (HPV) Immunization (1 - 3-dose SCDM series) 01/04/2020 Influenza Immunization (#1) 2025 SARS-COV-2 Immunization ( season) 2025 Respiratory Syncytial Virus (RSV) Immunization (Adult) (1 - 1-dose 75+ series) 01/04/2068 DTaP/Tdap/Td Immunization Discontinued 12/14/2016 TdaP Immunization Completed 12/14/2016 Meningococcal Immunization (ACWY) Aged Out No longer eligible based on patient's age to complete this topic Pneumococcal Immunization Combined Aged Out No longer eligible based on patient's age to complete this topic Rotavirus Immunization Aged Out No lo nger eligible based on patient's age to complete this topic Insurance [employer] on file
== END 2025-03-17 10:56 | disposition home or self-care (01) ==
PROVIDERS: PCP Nurse Practitioner Adult Health; Visit Provider Plastic Surgery
DX: S69.80XA Other specified injuries of unspecified wrist, hand and finger(s), initial encounter (principal); X58.XXXA Exposure to other specified factors, initial encounter
CPT/HCPCS: 73110